=== PATIENT | male | born 1950 | race Caucasian/White ===

== ENCOUNTER 2020-01-14 00:24 | Outpatient (CLI) | payer MEDICARE, SELFPAY ==
[2020-01-14 19:29] LABS: SARS-CoV-2 RNA PCR Negative
== END 2020-01-14 00:25 | disposition home or self-care (01) ==
LOC: ANHCOVIDDT 00:24
PROVIDERS: Visit Provider Internal Medicine Gastroenterology
DX: Z01.812 Encounter for preprocedural laboratory examination (principal); Z11.59 Encounter for screening for other viral diseases
CPT/HCPCS: 87635; C9803; U0003

== ENCOUNTER 2020-01-17 00:32 | Day surgery (SDC) | payer MEDICARE, SELFPAY ==
[2020-01-06 12:55] VITALS: BMI 26.9
[2020-01-17 06:58] VITALS: BP 167/94; PULSE 78; RESP 16; TEMP 36.6; O2SAT 98; BMI 26.4
[2020-01-17] MEDS: LACTATED RINGERS 1,000 ML 150 ML IV CONT (07:12)
[2020-01-17 07:16] LABS: Glucose Point of Care 154 (65-105)
--- NOTE | 2020-01-17 07:55 | WPDANESEPPF ---
Anes - Initial Pre Proc Eval Procedure: Operation Date: 01/17/20 08:00 Proposed Procedures p Screening Colonoscopy - Ravindra Teixeira MD Date/Time: 01/17/20 07:55 Surgeon: Ravindra Teixeira MD Pre Op Diagnosis: Hx of Colon Polyps Patient Data Age: 69 Gender: M Height: 6 ft 2 in Weight: 93.6 kg Last Vital Signs Temp 97.8 F 01/17/20 06:58 Pulse 78 01/17/20 06:58 Resp 16 01/17/20 06:58 BP 167/94 H 01/17/20 06:58 Pulse Ox 98 01/17/20 06:58 Allergies Allergy/AdvReac Type Severity Reaction Status Date / Time No Known Allergies Allergy Verified 01/17/20 06:54 Home Medications Medication Instructions Recorded Confirmed Type albuterol sulfate 2 puff INHALATION QID #8.5 gm 05/17/19 01/06/20 Rx amlodipine 5 mg PO DAILY 05/17/19 01/06/20 History atorvastatin 40 mg PO DAILY 05/17/19 01/06/20 History chlorthalidone 25 mg PO DAILY 05/17/19 01/06/20 History irbesartan 30 mg PO DAILY 05/17/19 01/06/20 History metformin 1,000 mg PO BID 05/17/19 01/06/20 History pantoprazole 40 mg PO DAILY 05/17/19 01/17/20 History aspirin [Aspir-81] 81 mg PO DAILY 01/06/20 01/17/20 History diphenhydramine HCl [Benadryl] 25 mg PO HS 01/06/20 01/06/20 History Laboratory Tests 01/17/20 07:10 POC Capillary Glucose 154 mg/dl H mg/dl (65-105) Patient hx anesthesia problems: none Family hx anesthesia problems: none PMFSH Past Medical History Medical History (Updated 01/17/20 @ 07:55 by Dar Boston MD) Diabetes GERD (gastroesophageal reflux disease) High cholesterol HTN (hypertension) SHANT (obstructive sleep apnea) Family History Family History (Updated 05/17/19 @ 14:31 by Ayala Ibarra CNP) Other Diabetes mellitus Heart disease Hypertension Social History Social History (Updated 01/06/20 @ 13:01 by Ro Rudd RN) Smoking packs per day: 1 Smoking cigarettes per day: 20.0 Years smoked: 15 Smoking pack-years: 15.00 Smoking status: Former smoker Tobacco type: cigarettes Alcohol intake: current Drinks per week: 14 Anes - Eval Final PreProcedure Day of Procedure 01/17/20 07:55 Patient weight: overweight Heart: regular rate and rhythm Lungs: clear to auscultation Airway: Mallampati scale class II Neurological: alert and oriented Last oral intake: >/= 8 hours ASA classification: III Emergent: no Anesthetic plan: proceed Anesthesia type and monitoring: general GIVS and standard monitoring Informed Consent: The patient's anesthetic plan and its attendant risks and benefits were discussed with the patient/family/POA. Questions were solicited and answers provided to the satisfaction of the patient/family/POA.
--- NOTE | 2020-01-17 08:07 | WPDGICN ---
Assessment and Plan Assessment and plan (1) History of colon polyps: Code(s): Z86.010 - Personal history of colonic polyps Status: Acute Assessment and Plan: after endoscopy. GI Consult Note Consult date/time: 01/17/20 08:07 HPI: Cuco Russo is a 69 year old male Presents for screening colonoscopy. Patient has a prior history of colon polyps. Most recent colonoscopy was in 2014. Patient states his current weight appetite bowel movements are normal. He denies abdominal pain. He has had no blood in his stools. Past medical history is significant for dyspepsia. He has been treated for diabetes. Review of Systems Review of Systems: All systems reviewed & are unremarkable except as noted in HPI and below PMFSH Past Medical History Medical History Diabetes GERD (gastroesophageal reflux disease) High cholesterol HTN (hypertension) SHANT (obstructive sleep apnea) Family History Family History Other Diabetes mellitus Heart disease Hypertension Social History Social History Smoking packs per day: 1 Smoking cigarettes per day: 20.0 Years smoked: 15 Smoking pack-years: 15.00 Smoking status: Former smoker Tobacco type: cigarettes Alcohol intake: current Drinks per week: 14 Meds Home Medications and Allergies Home Medications Medication Instructions Recorded Confirmed Type albuterol sulfate 2 puff INHALATION QID #8.5 gm 05/17/19 01/06/20 Rx amlodipine 5 mg PO DAILY 05/17/19 01/06/20 History atorvastatin 40 mg PO DAILY 05/17/19 01/06/20 History chlorthalidone 25 mg PO DAILY 05/17/19 01/06/20 History irbesartan 30 mg PO DAILY 05/17/19 01/06/20 History metformin 1,000 mg PO BID 05/17/19 01/06/20 History pantoprazole 40 mg PO DAILY 05/17/19 01/17/20 History aspirin [Aspir-81] 81 mg PO DAILY 01/06/20 01/17/20 History diphenhydramine HCl [Benadryl] 25 mg PO HS 01/06/20 01/06/20 History Allergies Allergy/AdvReac Type Severity Reaction Status Date / Time No Known Allergies Allergy Verified 01/17/20 06:54 Vital Signs Vital Signs - 24 hr 01/17/20 06:58 Temperature 97.8 F Pulse Rate 78 Respiratory Rate 16 Blood Pressure 167/94 H Pulse Oximetry 98 Exam Narrative: Exam Narrative: Physical exam reveals patient to be alert. Vital signs stable. HEENT exam unremarkable. Lungs are clear to auscultation and percussion. Heart is without murmur or extra sounds. Abdominal exam bowel sounds are present soft nontender with no organomegaly. Digital external rectal exam is normal.
[2020-01-17 08:34] VITALS: BP 105/52; PULSE 61; RESP 19; O2SAT 97
[2020-01-17 08:44] VITALS: BP 98/51; PULSE 62; RESP 20; O2SAT 98
[2020-01-17 08:54] VITALS: BP 128/69; PULSE 64; RESP 18; O2SAT 99
== END 2020-01-17 09:09 | disposition home or self-care (01) ==
PROVIDERS: Visit Provider Internal Medicine Gastroenterology
PROC: 0DJD8ZZ Inspection of Lower Intestinal Tract, Via Natural or Artificial Opening Endoscopic (ICD-10-PCS; CPT 45378; principal; 2020-01-17 08:00)
DX: Z12.11 Encounter for screening for malignant neoplasm of colon (principal); K64.8 Other hemorrhoids; K57.30 Diverticulosis of large intestine without perforation or abscess without bleeding; Z86.010 Personal history of colon polyps; E11.9 Type 2 diabetes mellitus without complications; I10 Essential (primary) hypertension; E78.00 Pure hypercholesterolemia, unspecified; K21.9 Gastro-esophageal reflux disease without esophagitis; G47.33 Obstructive sleep apnea (adult) (pediatric)
CPT/HCPCS: G0105; J2704; J7120

== ENCOUNTER 2022-12-11 10:24 | Outpatient (CLI) | payer MEDICARE, SELFPAY ==
--- NOTE | ~2022-12-11 | XR_ITS ---
Clinical Indication: Cough PA and lateral views of the chest: Comparison: 05/17/2019 Findings: The lungs are clear, without evidence of focal consolidation or pleural effusion. Cardiome diastinal silhouette is within normal limits. Bones and soft tissues are unremarkable. Impression: Normal chest. Reviewed, dictated and finalized at [facility]. Impression: Normal chest.
== END 2022-12-11 10:25 ==
DX: R05.3 Chronic cough (principal); R05.8 Other specified cough
CPT/HCPCS: 71046

== ENCOUNTER 2023-02-20 11:24 | Outpatient (CLI) | payer MEDICARE, SELFPAY | END 2023-02-20 11:25 | disposition home or self-care (01) | DX: R19.7 Diarrhea, unspecified (principal) | CPT/HCPCS: 87045; 87427; 87449; 87493; 89055 ==

== ENCOUNTER 2024-02-06 11:10 | Outpatient (CLI) | payer MEDICARE, SELFPAY ==
--- NOTE | ~2024-02-06 | XR_ITS ---
XR chest 2V Ordering provider: Negar Mullins History: 73 years Male with . Bronchitis . Comparison: December 11, 2022 FINDINGS: MEDIASTINUM: The cardiac silhouette is not enlarged. Prominent right hilum. LUNGS: No infiltrates, effusions or pneumothorax. Prominent bronchovascular markings in the lower lobes. OTHER: No free air under the diaphragm. Degenerative changes of the spine. IMPRESSION: No acute cardiopulmonary pathology with no change from previous examination. Reviewed, dictated and finalized at location [facility].
== END 2024-02-06 11:11 | disposition home or self-care (01) ==
DX: J40 Bronchitis, not specified as acute or chronic (principal)
CPT/HCPCS: 71046